=== PATIENT | female | born 1985 | race Caucasian/White ===

== ENCOUNTER 2017-11-12 05:42 | Observation (INO) | payer OTHER ==
[~2017-11-12] VITALS: Ht 154.9 cm; Wt 55.6 kg
[~2017-11-12 05:42] MED LIST: BEDSIDE COMMODE1 MI1; CALCTAB19 PO; ENDO10TA8 PO; MILKSUS PO; NEUR400C PO; WHEEMIS3
[2017-11-12] MEDS ORDERED: VANCOMYCIN 1000 MG/NS 250 ML (for <70 kg) IV SCH ×2 (06:15)
[2017-11-12] MEDS ORDERED: CHLORHEXIDINE GLUCONATE 2 % 1 PACK (2 CLOTHS) TOPICAL PRN (06:15)
[2017-11-12] MEDS ORDERED: LACTATED RINGER'S 1000 ML IV PRN (06:15)
[2017-11-12] MEDS ORDERED: ceFAZolin 2 GM PREMIX 50 ML IV SCH ×2 (06:15→16:00)
[2017-11-12] MEDS ORDERED: CHLORHEXIDINE GLUCONATE 4% SOLN 120 ML BTL TOPICAL SCH (06:15)
[2017-11-12] MEDS ORDERED: SODIUM CHLORID 0.9% 500 ML IV PRN (06:15)
[2017-11-12] MEDS ORDERED: METOPROLOL TARTRATE 25 MG TAB PO PRN (06:15)
[2017-11-12] MEDS ORDERED: POVIDONE IODINE 5% (ANTISEPSIS KIT) 4 APPLICATIONS EACH NARE PRN (06:15)
[2017-11-12] MEDS ORDERED: ACETAMINOPHEN 1000 MG/100 ML 100 ML IV ONE (06:24)
[2017-11-12] MEDS ORDERED: ENDO10TA8 PO (06:49)
[2017-11-12] MEDS ORDERED: XARE10TA PO (06:49)
[2017-11-12] MEDS ORDERED: FAMOTIDINE 20 MG/2 ML VIAL ONE (06:51)
[2017-11-12] MEDS ORDERED: KETAMINE HCL 500 MG/5 ML VIAL ONE (07:04)
[2017-11-12] MEDS ORDERED: HYDROmorphone HCL PF 2 MG/ML VIAL ONE (07:04)
[2017-11-12] MEDS ORDERED: MIDAZOLAM HCL 2 MG/2 ML VIAL ONE ×2 (07:09→08:59)
[2017-11-12] MEDS ORDERED: GENTAMICIN SULFATE 80 MG/2 ML VIAL ONE (07:14)
[2017-11-12] MEDS ORDERED: ceFAZolin 2 GM PREMIX 50 ML ONE (07:15)
[2017-11-12] MEDS ORDERED: VANCOMYCIN HCL 1000 MG VIAL ONE (07:15)
[2017-11-12] MEDS ORDERED: BUPIVACAINE/EPINEPHRINE 0.25% 50 ML VIAL ONE (08:04)
[2017-11-12] MEDS ORDERED: MAGNESIUM HYDROXIDE SUSP 30 ML CUP PO PRN (08:45)
[2017-11-12] MEDS ORDERED: oxyCODONE/ACETAMINOPHEN 10 MG/325 MG TAB PO PRN (08:45)
--- NOTE | 2017-11-12 08:45 | PD.OP ---
cc: Henrry Medina MD Operative Report Date of Surgery: Nov 12, 2017 Preoperative Diagnosis: Comminuted open left tibia fracture nonunion Postoperative Diagnosis: Procedure: Removal of antibiotic spacer, open treatment of left tibia nonunion with iliac crest bone graft, Amniofix stem cell graft, and Biosphere graft Surgeon: Henrry Medina Abap Developer(s): DONTE Salazar PA-C The surgical procedure was assisted by my physician [employer] assistant manager. My P.A. presence was necessary throughout this case for the manipulation and positioning of the surgical extremity. My P.A. was assisting me throughout the duration of this procedure. The skill set of a physician [employer] assistant manager was medically necessary to complete this procedure. During the surgical case the surgical garment assembly supervisor was working at the back table and the physician [employer] assistant manager was directly assisting me. Operation and Findings: Odilon is well-known to me from previous treatment of multiple bilateral lower extremity injuries. Patient had an open left tibia fracture with segmental defect. She returns today for treatment of left tibia. Informed consent was obtained and operative site was marked. She was brought to operating room. She was given IV sedation and general anesthesia. Timeout procedure was performed. Antibiotics were given prior to incision. Left leg was prepped with alcohol followed by Hibiclens and draped usual sterile fashion. Procedure began with a 6 inch incision through previous scar over the anterior leg. Subcutaneous tissue dissected with Bovie. At this point attention was turned towards removal antibiotic spacer. The antibiotic spacer was identified. Osteotomes were used to split the spacer. Antibiotic cement spacer was now completely removed. Fluoroscopy was used to confirm appropriate removal spacer. Tissue cultures were now obtained from the fracture site. Next attention was turned towards treatment of the nonunion. The edges of the bone were exposed. The edges of the bone were debrided with TPS bur. Edges of bone were debrided back to healthy bleeding bone. The pseudomembrane around the antibiotic spacer was left intact as much as possible. Fluoroscopy confirmed appropriate alignment of the fractures. At this point attention was turned grafting. A 5 cm incision was made of the iliac crest. Fascia was elevated off the iliac crest. The bone of the crest was exposed. Osteotomes were now used to obtain a tricortical piece of iliac crest. Additional cancellus bone was obtained using curettes. At this point an Amniofix stem cell graft was opened. Stem cells were mixed with 1 cc of blood from the iliac crest. The stem cells were now mixed with iliac crest bone. The defect of the tibia was now filled with bone graft. The tricortical piece was placed along the anterior lateral aspect of the tibia. There was still remaining space along the fracture site. A 5 cc pack of Biosphere bone graft was opened and packed around the remaining defect. Attention was now turned towards closure. The tibial incisions were closed with 3-0 PDS and 3-0 nylon. The iliac crest was closed with #1 Vicryl, 3-0 Vicryl, and beth. Iliac crest incision was infiltrated with quarter percent Marcaine with epinephrine. Dressings were applied. Patient was transferred to recovery room in stable condition. Needle and sponge counts were correct. Henrry Medina MD Nov 12, 2017 08:45
[2017-11-12] MEDS ORDERED: DO NOT ADM ANY ANTICOAGULANT DRUGS PRN (08:54)
[2017-11-12] MEDS ORDERED: *MEPERIDINE 25 MG INJ VIAL PERIprocedural Use ONLY ONE (09:10)
--- NOTE | 2017-11-12 09:12 | RADRPT ---
EXAM DATE/TIME: 11/12/2017 08:22 [place] COMPARISON: TIBIA/FIBULA LEFT (AP/LAT), October 03, 2017, 12:08. INDICATIONS : Revision of antibiotic spacer of left tibia. MEDICAL HISTORY : Unobtainable. SURGICAL HISTORY : Unobtainable. ENCOUNTER: Subsequent ACUITY: 1 month PAIN SCORE: Non-responsive. LOCATION: Left tibia. FINDINGS: Examination of the tibia and fibula demonstrates there has been placement of an intramedullary nail w ith 3 proximal and 2 distal interlocking screws. The fibular neck fracture is in good alignment. Ther e multiple fracture fragments in the distal mid tibia.. CONCLUSION: Status post fracture fixation of a markedly comminuted tibial shaft fracture with now excellent align ment. Marcell Yoon MD on November 12, 2017 at 9:08 Board Certified Radiologist. This report was verified electronically.
[2017-11-12] MEDS ORDERED: *HYDROmorphone PF 1 MG VIAL PERIprocedural Use ONLY ONE ×4 (09:19→10:54)
[2017-11-12] MEDS: LACTATED RINGER'S 1000 ML INJ 1,000 ML IV SCH ×2 (10:00→20:08)
[2017-11-12] MEDS ORDERED: GLYCOPYRROLATE 1 MG/5 ML SYRINGE IV PUSH ONE (12:00)
[2017-11-12] MEDS ORDERED: ceFAZolin INJ 1,000 MG VIAL IV ONE (12:00)
[2017-11-12] MEDS ORDERED: ONDANSETRON HCL 4 MG/2 ML VIAL IV PUSH ONE (12:00)
[2017-11-12] MEDS ORDERED: DEXAMETHASONE SOD PHOS 4 MG/ML VIAL IV ONE (12:00)
[2017-11-12] MEDS ORDERED: LIDOCAINE HCL 1% PF 5 ML SYRINGE OTHER ONE (12:00)
[2017-11-12] MEDS ORDERED: ESMOLOL HCL 100 MG/10 ML VIAL IV ONE (12:00)
[2017-11-12] MEDS ORDERED: ROCURONIUM INJ 50 MG/5 ML SYRINGE IV PUSH ONE (12:00)
[2017-11-12] MEDS ORDERED: LACTATED RINGER'S 1000 ML INJ 1,000 ML IV ONE (12:00)
[2017-11-12] MEDS ORDERED: PROPOFOL 200 MG/20 ML AMP IV ONE (12:00)
[2017-11-12] MEDS: oxyCODONE/ACETAMINOPHEN 10 MG/325 MG TAB PO PRN ×3 (12:33→19:20)
[2017-11-12 13:32] VITALS: BP 136/81; PULSE 96; RESP 18; TEMP 96.4; O2SAT 100
[2017-11-12] MEDS: GABAPENTIN 400 MG CAP PO SCH ×2 (13:43→16:59)
[2017-11-12] MEDS: CALCIUM/VITAMIN D 250 MG/125 U TAB PO SCH ×2 (13:43→16:59)
[2017-11-12] MEDS: HYDROmorphone HCL PF 2 MG/ML VIAL IV PUSH PRN ×4 (13:44→23:12)
[2017-11-12 16:00] VITALS: BP 131/72; PULSE 83; RESP 18; TEMP 97.2; O2SAT 100
[2017-11-12] MEDS: VANCOMYCIN INJ 1,000 MG in SODIUM CHLOR 0.9% 250 ML INJ 250 ML IV SCH (19:20)
[2017-11-12 20:15] VITALS: BP 120/71; PULSE 93; RESP 16; TEMP 97.5; O2SAT 99
[2017-11-12] MEDS: ceFAZolin 2 GM PREMIX 50 ML IV SCH (23:12)
[2017-11-13 00:30] VITALS: BP 114/54; PULSE 77; RESP 16; TEMP 97.3; O2SAT 99
[2017-11-13] MEDS: HYDROmorphone HCL PF 2 MG/ML VIAL IV PUSH PRN ×2 (04:28→07:40)
[2017-11-13 04:45] VITALS: BP 125/62; PULSE 79; RESP 16; TEMP 97.5; O2SAT 100
[2017-11-13] MEDS: LACTATED RINGER'S 1000 ML INJ 1,000 ML IV SCH (06:00)
--- NOTE | 2017-11-13 06:26 | PD.ORT.PN ---
Subjective Subjective Remarks POD 1 s/p removal of Abx spacer with ICBG, allograft bone grafting, stem cell grafting of left tibia doing well. pain controlled. reports pain in hip but tibia pain controlled well Objective Vitals Vital Signs Date Time Temp Pulse Resp B/P (MAP) Pulse Ox O2 Delivery O2 Flow Rate FiO2 11/13/17 04:45 97.5 79 16 125/62 (83) 100 11/13/17 00:30 97.3 77 16 114/54 (74) 99 11/12/17 20:15 97.5 93 16 120/71 (87) 99 11/12/17 17:02 18 11/12/17 16:00 97.2 83 18 131/72 (91) 100 11/12/17 15:14 18 11/12/17 13:32 96.4 96 18 136/81 (99) 100 11/12/17 13:10 66 16 98 Room Air 11/12/17 13:00 97.6 64 16 125/72 (89) 98 Room Air 11/12/17 12:00 69 16 128/73 (91) 97 Room Air 11/12/17 11:00 70 16 130/70 (90) 96 Room Air 11/12/17 10:30 73 16 129/73 (91) 96 Room Air 11/12/17 10:00 97.6 78 15 133/80 (97) 100 Nasal Cannula 2 11/12/17 09:49 16 11/12/17 09:49 16 11/12/17 09:49 16 11/12/17 09:45 91 15 134/69 (90) 96 Nasal Cannula 2 11/12/17 09:30 93 15 131/70 (90) 96 Nasal Cannula 2 11/12/17 09:15 95 14 124/61 (82) 95 Nasal Cannula 2 11/12/17 09:00 97 14 110/52 (71) 100 Nasal Cannula 3 11/12/17 08:50 97.6 95 14 101/51 (68) 98 Nasal Cannula 3 11/12/17 06:28 98.5 75 20 124/86 (99) 100 I/O 11/12/17 11/12/17 11/12/17 11/13/17 11/13/17 11/13/17 07:00 15:00 23:00 07:00 15:00 23:00 Intake Total 2040 ml 480 ml 300 ml Output Total 50 ml Balance 1990 ml 480 ml 300 ml Intake Oral 240 ml 480 ml IV Total 300 ml 300 ml Other 1500 ml Output Estimated Blood Loss 50 ml # Voids 1 2 # Bowel Movements 0 Objective Remarks LLE: hip dressing with mild bloody drainage. tibia dressing clean and dry. intact. NVI,. neg vincent Assessment & Plan Assessment and Plan 1) s/p removal of Abx spacer with ICBG, allograft bone grafting, stem cell grafting of left tibia - POD 1 -NWB BLE -fracture boot right leg -work on motion of bilateral ankles -daily dressing changes left tibia and hip -f/u with Arcelia or PA in 2 weeks -DC home with HHC today Honorio Cartwright/[employer] GRAY Nov 13, 2017 06:26
--- NOTE | 2017-11-13 06:27 | HHI.FF ---
Face to Face Verification Diagnosis: (1) Tibia/fibula fracture, shaft Physical Therapy Right LE Weight Bearing: Non WB Left LE Weight Bearing: Non WB Nursing Dressing Changes: Daily dressing change, Gabo wrap (left tibia - xeroform/4x4/ GABO), 4x4s, Xeroform, Coverderm/Primapore (left hip - xeroform/primapore) I have seen patient Odilon Espitia on 11/13/17. My clinical findings support the need for the requested home health care services because: Ltd mobility - disease progression I certify that my clinical findings support that this patient is homebound because: Post-op weakness Honorio Cartwright/[employer] GRAY Nov 13, 2017 06:27
--- NOTE | 2017-11-13 06:31 | HHI.DS ---
Discharge Summary Admission Date Nov 12, 2017 at 09:15 Discharge Date: Nov 13, 2017 Admitting Diagnosis nonunions left tibial shaft fx Diagnosis: (1) Tibia/fibula fracture, shaft Diagnosis: Principal ICD Codes: S82.209A - Unspecified fracture of shaft of unspecified tibia, initial encounter for closed fracture; S82.409A - Unspecified fracture of shaft of unspecified fibula, initial encounter for closed fracture Procedures removal of antibiotic spacer with iliac crest bone grafting, stem cell grafting , allograft bone grafting of left tibia PE at Discharge LLE: hip dressing with mild bloody drainage. tibia dressing clean and dry. intact. NVI,. neg [facility] Hospital Course Patient admitted from outpatient for removal of Abx spacer and bone grafting of left tibia. Patient known to Dr Paniagua previously for traumatic fractures of bilateral legs. Patient had IMN of left tibia originally with Abx spacer placement due to large bony defect. Patient tolerated procedure well and admitted to . POD 1 patient states that pain is well controlled and that most pain is in hip. She will remain NWB on BLE, have daily dressing changes with HHC to left hip and tibia, remain in Fx boot on right ankle, is hemodynamically stable, pain controlled, and fit for discharge home today. She will follow up with Dr Paniagua or his PA in 2 weeks Pt Condition on Discharge: Good Discharge Disposition: Disch w/ Home Health Serv Discharge Instructions Diet Instructions: As Tolerated, No Restrictions Activities You Can Perform: Non Weight Bearing Follow up Referrals: Orthopedics - 2 Weeks @ [facility] with Henrry Paniagua MD New Medications: Rivaroxaban (Xarelto) 10 Mg Tab 10 MG PO DAILY for Blood Clot Prevention, #14 TAB 0 Refills Continued Medications: Calcium Carbonate-Vitamin D (Calcium 600+D 200) 600-200 Mg-Unit Tab 1 TAB PO BID for Nutritional Supplement, #90 TAB 0 Refills Gabapentin (Neurontin) 400 Mg Cap 400 MG PO TID for Pain Management, #90 CAP Magnesium Hydroxide Liq (Milk of Magnesia Liq) 400 Mg/5 Ml Susp 30 ML PO DAILY PRN for INDIGESTION OR UPSET STOMACH, #1 BOTTLE 0 Refills Oxycodone-Acetaminophen (Endocet) 10-325 mg Tab 1 TAB PO Q4H PRN for Pain Management, #60 TAB 0 Refills (This prescription has been renewed) Honorio Cartwright/Branch Operations Specialist PA Nov 13, 2017 06:31
[2017-11-13] MEDS: ceFAZolin 2 GM PREMIX 50 ML IV SCH (07:52)
[2017-11-13] MEDS: CALCIUM/VITAMIN D 250 MG/125 U TAB PO SCH (07:53)
[2017-11-13] MEDS: GABAPENTIN 400 MG CAP PO SCH (07:53)
[2017-11-13 07:55] VITALS: BP 118/74; PULSE 73; RESP 17; TEMP 97.3; O2SAT 98
[2017-11-13] MEDS ORDERED: ENOXAPARIN SODIUM 40 MG/0.4 ML SYRINGE SQ SCH (08:00)
[2017-11-13] MEDS: VANCOMYCIN INJ 1,000 MG in SODIUM CHLOR 0.9% 250 ML INJ 250 ML IV SCH (08:34)
[2017-11-13] MEDS: oxyCODONE/ACETAMINOPHEN 10 MG/325 MG TAB PO PRN (09:52)
[2017-11-13] MEDS ORDERED: INFLUENZA VIRUS VACCINE (QUADRIVALENT) 0.5 ML SYR IM ONE (10:00)
== END 2017-11-13 12:14 | disposition home health service (06) ==
LOC: HSDC 05:42 → N06A 09:15
PROVIDERS: ADMIT Orthopaedic Surgery Orthopaedic Trauma; ATTEND Orthopaedic Surgery Orthopaedic Trauma
DX: S82.252B Displaced comminuted fracture of shaft of left tibia, initial encounter for open fracture type I or II (principal); V47.5XXA Car driver injured in collision with fixed or stationary object in traffic accident, initial encounter; Y93.89 Activity, other specified; Y92.410 Unspecified street and highway as the place of occurrence of the external cause; F41.9 Anxiety disorder, unspecified
CPT/HCPCS: 01480; 27724; 73590; 76000; 87015; 87070; 87102; 87116; 87205; 87206; 96365; 96366; 96372; 96375; 96376; 97161; C1713; G0378; G8987; G8988; J0131; J0690; J1100; J1170; J1580; J1650; J2175; J2250; J2405; J3010; J3370; J7050; J7120

== ENCOUNTER 2017-11-13 13:45 | Emergency (ER) | payer SELFPAY ==
[~2017-11-13] VITALS: Ht 154.9 cm; Wt 56.0 kg
[~2017-11-13 13:45] MED LIST changes: +XARE10TA PO
[2017-11-13 13:50] VITALS: BP 136/82; PULSE 84; RESP 18; TEMP 98.8; O2SAT 100
--- NOTE | 2017-11-13 15:54 | PD ---
Physical Exam Date Seen by Provider: Nov 13, 2017 Time Seen by Provider: 14:02 Narrative 32 year old female presents to the emergency department for evaluation. She states she was discharged today from the hospital. She was arrested under a police warrant and is now in police custody. Patient states she needs something to eat, feeling like she might have low blood sugar and wants help going to the bathroom. The patient never left the facility before checking back in. Data Data Last Documented VS Vital Signs Date Time Temp Pulse Resp B/P (MAP) Pulse Ox O2 Delivery O2 Flow Rate FiO2 11/13/17 13:50 98.8 84 18 136/82 (100) 100 MDM Supervised Visit with SHANKAR: No Narrative Course 32 year old female presents to the emergency department just after being discharged stating she needs to eat and needs help going to the bathroom. Before patient could be placed in a medical bed, she stated that she didn't want to wait and left AMA. Diagnosis Primary Impression: Left against medical advice Disposition: 07 AGAINST MEDICAL ADVICE Magda Hernadez Nov 13, 2017 15:54
== END 2017-11-13 14:02 | disposition left against medical advice (07) ==
LOC: NED 13:45
DX: Z00.00 Encounter for general adult medical examination without abnormal findings (principal)
CPT/HCPCS: 99281

== ENCOUNTER 2018-05-21 06:02 | Observation (INO) ==
[2018-05-21] MEDS ORDERED: Vancomycin Inj 1 GM/200 ML PIGGYBACK IV.SIG SCH (07:00)
[2018-05-21] MEDS ORDERED: Chlorhexidine Gluconate 2% 1 Pack (2 Cloths) TOPICAL SCH (07:00)
[2018-05-21] MEDS ORDERED: Sodium Chlor 0.9% Inj 500 ML IV.SIG SCH (07:00)
[2018-05-21] MEDS ORDERED: Metoprolol Tartrate 25 MG Tablet PO SCH (07:00)
[2018-05-21] MEDS ORDERED: HYDROmorphone PF Inj 2 MG/ML Vial ONE ×2 (07:36→12:03)
[2018-05-21] MEDS: ceFAZolin 2 GM Premix Inj 2 GM/50 ML PIGGYBACK IV.SIG SCH ×2 (09:37→17:10)
[2018-05-21] MEDS ORDERED: Bupivacaine/Epinephrine PF Inj 0.5% 10 ML Vial ONE (10:25)
[2018-05-21] MEDS ORDERED: ALPRAZolam 0.5 MG Tablet PO PRN (10:50)
[2018-05-21] MEDS ORDERED: Post-op Orders (for Pharmacy) OTHER STA (10:50)
[2018-05-21] MEDS ORDERED: Promethazine 25 MG Supp RECTAL PRN (10:50)
--- NOTE | 2018-05-21 11:07 | P.OP ---
- Preoperative Diagnosis (1) Stress fracture, right tibia, subsequent encounter for fracture with nonunion Date of procedure: 05/21/18 Procedure: Removal of hardware right tibia, removal of hardware right fibula, fibula osteotomy, open treatment of right tibia nonunion with intramedullary nail fixation, iliac crest bone graft, INFUSE graft Anesthesia: GETA Surgeon: Henrry Medina MD Bay Stocker: Honorio Cartwright PA-C The surgical procedure was assisted by my physician primary teaching assistant. My P.A. presence was necessary throughout this case for the manipulation and positioning of the surgical extremity. My P.A. was assisting me throughout the duration of this procedure. The skill set of a physician primary teaching assistant was medically necessary to complete this procedure. During the surgical case the surgical services manager was working at the back table and the physician primary teaching assistant was directly assisting me. Operation and Findings: Implants: Synthes [9]mm x [300]mm tibial nail Plan of activity: Nonweightbearing Nives was seen and examined preoperatively. She has developed a nonunion of her right tibia with failure of hardware.. An informed consent was obtained from patient after detailed discussion of risk and benefits. Risks of surgery include bleeding, infection, painful hardware, nonunion, malunion, leg length discrepancy, need for hardware removal, and medical complications associated with anesthesia including blood clots, stroke, heart attack, and were discussed. Operative site was marked. Patient was brought to the operating room placed on or table. Patient received IV antibiotics and was given IV sedation GETA. Operative leg was prepped with alcohol Hibiclens and draped in usual sterile fashion. Timeout procedure was performed Procedure began removal of deep hardware from the tibia. Incision was made through previous scar on the anterior lateral aspect of the leg. Subcu tissue was dissected Bovie. Full-thickness skin flaps were elevated. Care was taken to avoid injury to neurovascular structures. The tibial plate was exposed. Each screw was now loosened using a screwdriver. All screws were removed. The plate was broken. The plate was elevated and removed. Next attention turned to the fibula. The fibular was now exposed. A separate fascial incision was utilized to expose the fibula. The screws were identified. The screws were now removed. The plate was elevated. Next attention was turned towards fibular osteotomy. Soft tissue was protected. Using oscillating saw an osteotomy was created along the shaft of the fibula. Approximately 5 mm of bone were was removed to allow for correction of the varus deformity. At this point attention was turned towards debridement of the nonunion. Curettes and rongeurs were used to debride the fibrous tissue from the fracture site. A TPS bur was also used to debride the edges of the bone. Next, attention was turned towards reduction of the fracture. A clamp was placed to hold the fracture reduced. Traction was applied. The fracture reduced and excellent alignment was achieved. Next a 3 cm incision was made proximal to the patella. Quadriceps tendon was split in line with fibers. Cannulas were placed in the patellofemoral joint to protect the articular surface at all times. A guidepin was placed into the tibia and advanced in the tibial canal. Fluoroscopy was used to confirm appropriate guidepin placement. An opening reamer was used to open the tibial canal. A ball-tipped guidewire was advanced down the tibial canal. Guidepin was passed across the fracture site into the center of the distal tibia. Fluoroscopy confirmed guidepin placement. The nail length was now measured. The fracture was now held in a reduced position and the canal was reamed. The canal was reamed up to appropriate size. A tibia nail was now selected. Next the nail was fully seated. Using perfect blackfeet technique 4 distal interlocking screws were placed. Using the insertion handle as a guide 2 proximal interlocking screws were placed. Fluoroscopy confirmed excellent of fracture with well-placed hardware. At this point attention was turned iliac crest bone grafting. A 3 cm incision was made over the iliac crest. Subcutaneous tissue dissected with Bovie. Osteotomes were used to create a window in the iliac crest. Bone graft was now harvested from the iliac crest using curettes. After completion of harvesting of the bone graft fascia was closed with #1 Vicryl. Subcutaneous tissues closed with 3-0 Vicryl. Skin was closed with beth. The incision area was infiltrated with quarter percent Marcaine with epinephrine. At this point a medium Infuse graft was opened. The Infuse was mixed appropriately and allowed to set. This was mixed with iliac crest bone graft. This bone graft with Infuse was now packed in the fracture nonunion site. The defect was completely filled. Fascia and iliotibial band closed with #1 Vicryl, . Subcutaneous tissues closed with 3-0 Vicryl and skin was closed with beth. Incisions and the knee joint were thoroughly irrigated with sterile saline. Fascia was closed with #1 Vicryl, subcutaneous tissues closed with 3-0 Vicryl and skin was closed with beth. Sterile dressings were applied. Patient was awakened and transferred to recovery in stable condition.
--- NOTE | 2018-05-21 11:29 | XR ---
EXAM DATE: 05/21/2018 11:18 AM EDT AGE/SEX: 32 years / Female INDICATIONS: Right lower leg ORIF. CLINICAL DATA: This is the patient's initial encounter. Patient reports that signs and symptoms have been present for 1 day and indicates a pain score of Nonresponsive. MEDICAL/SURGICAL HISTORY: None. . ORIF right leg. [place] [facility] [place]/LAT[place]/2017. . FINDINGS: The previously noted screw plate fixation devices along the distal tibia and fibula have been removed . An intramedullary pineda has been placed into the tibia with multiple locking screws. Fracture fragmen ts are near-anatomic alignment. The ankle mortise is intact. CONCLUSION: Interval postsurgical changes. Electronically signed by: Tonio Frank MD 05/21/2018 11:27 AM EDT
[2018-05-21] MEDS ORDERED: *Meperidine Inj 25 MG/ML Vial PERIprocedural Use ONLY ONE (11:36)
[2018-05-21] MEDS ORDERED: fentaNYL Citrate Inj 100 MCG/2 ML Ampul ONE (11:40)
[2018-05-21] MEDS ORDERED: Neostigmine Inj 5 MG/5 ML Syringe IV.PUSH ONE (12:00)
[2018-05-21] MEDS ORDERED: Lidocaine PF 1% Inj 5 ML Syringe INFILTRATN ONE (12:00)
[2018-05-21] MEDS ORDERED: Glycopyrrolate Inj 1 MG/5 ML Syringe IV.PUSH ONE (12:00)
[2018-05-21] MEDS: HYDROmorphone PF Inj 2 MG/ML Vial IV.PUSH PRN ×2 (12:08→16:12)
[2018-05-21] MEDS: Ketorolac Inj 30 MG/ML (IVP) Vial IV.PUSH SCH ×2 (12:26→19:00)
[2018-05-21] MEDS: Calcium/Vitamin D 250/125 MG Tablet PO SCH ×2 (13:18→17:08)
[2018-05-21] MEDS: Gabapentin 400 MG Capsule PO SCH ×2 (13:18→17:08)
[2018-05-21] MEDS: oxyCODONE/Acetaminophen 10/325 Tablet PO PRN ×4 (13:18→23:06)
[2018-05-21] MEDS: Senna/Docusate Sodium 8.6/50 MG Tablet PO SCH (20:13)
[2018-05-21] MEDS: Vancomycin Inj 1,000 MG in Sodium Chlor 0.9% Inj 250 ML IV.SIG SCH (20:14)
[2018-05-22] MEDS: oxyCODONE/Acetaminophen 10/325 Tablet PO PRN ×8 (02:04→23:44)
[2018-05-22] MEDS: ceFAZolin 2 GM Premix Inj 2 GM/50 ML PIGGYBACK IV.SIG SCH ×7 (02:05→23:45)
--- NOTE | 2018-05-22 06:55 | P.PNOP ---
Subjective Interval history: POD 1 s/p LAI with ICBG and IMN right distal tibia nonunion Reports significant pain overnight. States has been out of bed to the commode. Otherwise, has been elevating foot and remaining nonweightbearing. Physical Exam Vital signs: Vital Signs 05/21/18 07:00 05/21/18 11:35 05/21/18 11:45 Temperature 99.2 F 97.3 F L Pulse Rate 66 85 78 Respiratory Rate 18 9 L 14 Blood Pressure 120/77 106/72 124/71 Pulse Oximetry 100 100 100 05/21/18 12:00 05/21/18 12:15 05/21/18 12:30 Temperature 97.6 F Pulse Rate 70 72 81 Respiratory Rate 15 15 16 Blood Pressure 130/75 123/61 120/60 Pulse Oximetry 96 97 98 05/21/18 13:00 05/21/18 16:00 05/21/18 20:00 Temperature 97.8 F 98.0 F 98 F Pulse Rate 79 78 74 Respiratory Rate 17 17 18 Blood Pressure 101/67 117/64 130/81 Pulse Oximetry 99 99 100 05/22/18 00:00 05/22/18 04:00 Temperature 98.5 F 99 F Pulse Rate 80 72 Respiratory Rate 18 18 Blood Pressure 105/54 L 100/53 L Pulse Oximetry 98 100 Intake & Output 05/21/18 05/21/18 05/22/18 06:59 18:59 06:59 Intake Total 2210 / 2210 Output Total 100 / 100 Balance 2109 / 2110 Weight 58 kg 58 kg Intake: IV 1850 / 1850 LR 1000 mL Inj 1,000 ML @ 30 1500 / 1500 mls/hr IV.SIG .Q24H OPHELIA Rx#: [id number] Vancomycin Inj 1 gm In 200 ml @ 200 / 200 200 mls/hr IV.SIG RECORDING ENGINEER OPHELIA Rx#:[id number] Ancef 2 GM Premix Inj 2 gm In 150 / 150 50 ml @ 100 mls/hr IV.SIG Q8H OPHELIA Rx#:[id number] Oral 360 / 360 Output: Estimated Blood Loss 100 / 100 Other: # Voids 2 Date of Last Bowel Movement 05/20/18 05/20/18 Weight On Admission 58 kg Narrative: RLE: Dressings are clean and dry. Intact. Splint is intact. Full sensation and movement of toes Results - Labs Microbiology 05/21/18 09:35 Tissue - Knee Gram Stain - Final 05/21/18 09:35 Tissue - Knee Fungal Smear - Final No fungal elements seen - Imaging Impressions Tibia/Fibula X-Ray 05/21/18 00:00 CONCLUSION: Assessment and Plan - Assessment and Plan 1) right distal tibia nonunion status post removal of hardware with iliac crest bone grafting intramedullary nailing right tibia - POD 1 -NWB -Maintain splint at all times -Elevate -Daily dressing changes of right hip -Work with therapy on ambulating with a walker -Plan for discharge home on Friday once ambulating safely with a walker -Follow-up with Dr. Paniagua or his PA in 2 weeks [place] Prescription Drug Monitoring Database has been queried and verified prior to prescribing the controlled substance. Acute pain exception. This patient has normal, predicted, physiological, and time limited response to an adverse mechanical stimulus associated with surgery, trauma, or acute illness as described in my notes. There is a lack of alternative treatment options other than to include the prescribed narcotic treatment for this condition.
[2018-05-22] MEDS: Calcium/Vitamin D 250/125 MG Tablet PO SCH ×3 (08:35→17:17)
[2018-05-22] MEDS: Gabapentin 400 MG Capsule PO SCH ×3 (08:35→17:17)
[2018-05-22] MEDS: Senna/Docusate Sodium 8.6/50 MG Tablet PO SCH ×2 (08:35→20:00)
[2018-05-22] MEDS: Vancomycin Inj 1,000 MG in Sodium Chlor 0.9% Inj 250 ML IV.SIG SCH (08:36)
[2018-05-22] MEDS: HYDROmorphone PF Inj 2 MG/ML Vial IV.PUSH PRN ×5 (09:41→21:57)
[2018-05-23] MEDS: HYDROmorphone PF Inj 2 MG/ML Vial IV.PUSH PRN ×5 (02:41→21:31)
[2018-05-23] MEDS: oxyCODONE/Acetaminophen 10/325 Tablet PO PRN ×3 (05:55→20:17)
--- NOTE | 2018-05-23 08:07 | P.PNOP ---
Subjective Interval history: Patient c/o pain to RLE. C/o numbness to toes. Physical Exam Vital signs: Vital Signs 05/22/18 12:00 05/22/18 16:00 05/22/18 20:00 Temperature 97.8 F 97.3 F L 98.2 F Pulse Rate 80 84 86 Respiratory Rate 18 18 19 Blood Pressure 117/59 L 106/57 L 107/57 L Pulse Oximetry 100 97 98 05/22/18 20:30 05/23/18 00:00 Temperature 98.8 F Pulse Rate 90 Respiratory Rate 18 19 Blood Pressure 108/56 L Pulse Oximetry 99 Intake & Output 05/22/18 05/23/18 05/23/18 18:59 06:59 18:59 Intake Total 450 / 450 580 / 580 Output Total 805 / 805 Balance -355 / -355 580 / 580 Weight 58 kg Intake: IV 150 / 150 100 / 100 Ancef 2 GM Premix Inj 2 gm In 150 / 150 100 / 100 50 ml @ 100 mls/hr IV.SIG Q8H OPHELIA Rx#:[id number] Oral 300 / 300 480 / 480 Output: Urine 805 / 805 Other: # Voids 3 Date of Last Bowel Movement 05/20/18 05/20/18 RLE: dressing C/D/I splint in place negative sensation to toes good movement of toes Results - Labs Microbiology 05/21/18 09:35 Tissue - Knee Gram Stain - Final 05/21/18 09:35 Tissue - Knee Wound Culture - Preliminary No growth in 24 hours 05/21/18 09:35 Tissue - Knee Acid Fast Bacilli Smear - Final No acid fast bacilli seen - Imaging Impressions Tibia/Fibula X-Ray 05/21/18 00:00 CONCLUSION: Interval postsurgical changes. Assessment and Plan - Assessment and Plan 1) right distal tibia nonunion status post removal of hardware with iliac crest bone grafting intramedullary nailing right tibia - POD 2 -NWB -Maintain splint at all times -Elevate -Daily dressing changes of right hip -Work with therapy on ambulating with a walker -Plan for discharge home on Friday once ambulating safely with a walker -Follow-up with Dr. Paniagua or his PA in 2 weeks -Monitor sensation of toes E-FOROptimal+E Prescription Drug Monitoring Database has been queried and verified prior to prescribing the controlled substance. Acute pain exception. This patient has normal, predicted, physiological, and time limited response to an adverse mechanical stimulus associated with surgery, trauma, or acute illness as described in my notes. There is a lack of alternative treatment options other than to include the prescribed narcotic treatment for this condition.
[2018-05-23] MEDS: ceFAZolin 2 GM Premix Inj 2 GM/50 ML PIGGYBACK IV.SIG SCH (08:34)
[2018-05-23] MEDS: Senna/Docusate Sodium 8.6/50 MG Tablet PO SCH ×2 (08:35→20:17)
[2018-05-23] MEDS: Calcium/Vitamin D 250/125 MG Tablet PO SCH ×3 (08:35→17:31)
[2018-05-23] MEDS: Gabapentin 400 MG Capsule PO SCH ×3 (08:35→17:30)
[2018-05-24] MEDS: oxyCODONE/Acetaminophen 10/325 Tablet PO PRN ×2 (01:19→12:08)
[2018-05-24] MEDS: HYDROmorphone PF Inj 2 MG/ML Vial IV.PUSH PRN ×2 (04:40→09:07)
--- NOTE | 2018-05-24 08:41 | P.PNOP ---
Subjective Interval history: Patient c/o having intermittent pain to RLE. C/o having numbness to right toes. Physical Exam Vital signs: Vital Signs 05/23/18 09:05 05/23/18 11:39 05/23/18 16:48 Temperature 98.1 F 99.5 F Pulse Rate 85 100 H Respiratory Rate 15 15 18 Blood Pressure 122/80 116/57 L Pulse Oximetry 98 05/23/18 20:00 05/23/18 21:00 05/23/18 22:01 Temperature 98.1 F Pulse Rate 99 H Respiratory Rate 21 18 18 Blood Pressure 127/60 Pulse Oximetry 100 05/24/18 01:15 05/24/18 01:49 05/24/18 04:00 Temperature 98.9 F 98.2 F Pulse Rate 100 H 83 Respiratory Rate 21 18 18 Blood Pressure 125/71 119/58 L Pulse Oximetry 98 98 05/24/18 04:09 Temperature Pulse Rate Respiratory Rate 18 Blood Pressure Pulse Oximetry Intake & Output 05/23/18 05/24/18 05/24/18 18:59 06:59 18:59 Intake Total 1260 / 1260 Balance 1260 / 1260 Weight 58 kg Intake: Oral 1260 / 1260 Other: # Voids 3 Date of Last Bowel Movement 05/20/18 RLE: dressing and splint in place no drainage noted sensation to the lateral aspect of first toe and feels pressure to 5th toe. numbness to 2nd, 3rd, and 4th toes. 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 Paniagua or his PA in [address] Nicolas spoke and evaluate patient. Discussed in detail the possibility of her nerves being stretched or the swelling compressing the nerves causing her to have numbness to the toes. This may take 3-4 months to know if symptoms will improve. Advised to continue moving her toes. [email or web address] Prescription Drug Monitoring Database has been queried and verified prior to prescribing the controlled substance. Acute pain exception. This patient has normal, predicted, physiological, and time limited response to an adverse mechanical stimulus associated with surgery, trauma, or acute illness as described in my notes. There is a lack of alternative treatment options other than to include the prescribed narcotic treatment for this condition.
[2018-05-24 08:43] VITALS: TEMP 98; O2SAT 100
[2018-05-24] MEDS: Senna/Docusate Sodium 8.6/50 MG Tablet PO SCH (09:10)
[2018-05-24] MEDS: Calcium/Vitamin D 250/125 MG Tablet PO SCH (09:10)
[2018-05-24] MEDS: Gabapentin 400 MG Capsule PO SCH (09:10)
[2018-05-24 12:44] VITALS: BP 133/77; PULSE 88; RESP 17
== END 2018-05-24 16:49 | disposition home or self-care (01) ==
LOC: N06 → INTOOBSV 06:02 → HSDI 06:02 → N06 12:46
PROVIDERS: ADMIT Orthopaedic Surgery Orthopaedic Trauma; ATTEND Orthopaedic Surgery Orthopaedic Trauma